=== PATIENT | female | born 1980 | race Caucasian/White ===

== ENCOUNTER 2024-12-04 04:29 | Emergency (ER) | payer MEDICAID ==
[~2024-12-04] VITALS: Ht 157.5 cm; Wt 56.8 kg
[~2024-12-04 04:29] MED LIST: NAPR-56 PO; ONDA-243 PO; SULF1TAB49 PO; TAMS-55 PO; TRAM50TA2 PO
[2024-12-04] MEDS: normal saline 1000ml 1,000 ML IV ONE (05:19)
[2024-12-04 05:27] LABS: BILIRUBIN,URINE NEGATIVE (Neg); CLARITY,URINE CLOUDY (Clear); COLOR,URINE YELLOW (Yellow); GLUCOSE, URINE NEGATIVE (Neg); KETONES,URINE NEGATIVE (Neg); LEUKOCYTE ESTERASE ,URINE MODERATE (Neg); NITRITES, URINE NEGATIVE (Neg); OCCULT BLOOD,URINE MODERATE (Neg); PROTEIN,URINE 100 mg/dl (Neg); URINE HCG NEGATIVE (NEG); UROBILINOGEN,URINE 0.2 E.U/dL (0.2-1.0)
[2024-12-04 05:29] LABS: BASOPHILS % (AUTO) 0.2 % (0-1); EOSINOPHILS % (AUTO) 0.2 % (0-6); HEMATOCRIT 37.3 % (35.0-45.0); HEMOGLOBIN 12.5 g/dl (12.0-16.0); LYMPHOCYTES # (AUTO) 1.4 X10'3 (1.1-4.8); LYMPHOCYTES % (AUTO) 12.2 % (21-51); MEAN CORPUSCULAR HGB CONC 33.4 g/dL (33.0-36.5); MEAN CORPUSCULAR VOLUME 86.8 FL (78-98); MEAN PLATELET VOLUME 8.9 FL (7.4-10.4); MONOCYTES # (AUTO) 0.9 X10'3 (0-0.9); MONOCYTES % (AUTO) 7.9 % (2-12); NEUTROPHILS # (AUTO) 9.4 X10'3 (1.8-7.7); NEUTROPHILS % (AUTO) 79.5 % (42-75); PLATELET COUNT 211 X10'3 (140-440); RED CELL DISTRIBUTION WIDTH 13.1 % (11.5-14.5); WHITE BLOOD COUNT 11.9 X10'3 (4.5-11.0)
[2024-12-04] MEDS ORDERED: iohexol 300mg/ml 100ml inj. ONE (05:30)
[2024-12-04 05:33] LABS: UA COLLECTION TYPE CLN CATCH MIDSTREAM
[2024-12-04 05:38] LABS: ALANINE AMINOTRANSFERASE 13 U/L (12-78); ALBUMIN 3.8 G/DL (3.4-5.0); ALKALINE PHOSPHATASE 83 IU/L (46-116); ANION GAP 9 (8-16); ASPARTATE AMINO TRANSFERASE 14 U/L (10-37); BILIRUBIN,TOTAL 0.5 MG/DL (0.1-1.0); BLOOD UREA NITROGEN 17 MG/DL (7-18); BUN/CREATININE RATIO 18.3 (10.0-20.0); CALCIUM 9.1 MG/DL (8.5-10.1); CHLORIDE 102 MMOL/L (99-107); CREATININE 0.93 MG/DL (0.40-0.90); GLUCOSE 136 MG/DL (70-104); LIPASE 26 U/L (16-77); POTASSIUM 3.6 MMOL/L (3.5-5.1); SODIUM 136 MMOL/L (135-145); TOTAL PROTEIN 7.5 G/DL (6.4-8.2); eCRCL 60 ML/MIN; eGFR 65 ML/MIN
[2024-12-04 05:42] LABS: SQUAMOUS EPITHELIAL CELL,UR MODERATE /LPF (FEW)
[2024-12-04 05:43] LABS: BACTERIA,URINE 2+ /HPF (Neg); MUCUS STRANDS FEW /LPF (Neg); WBC,URINE TNTC /HPF (0-4)
[2024-12-04] MEDS: CefTRIAXone/D5W-Rocephin 1gm 50 ML IV ONE (06:17)
[2024-12-04] MEDS: normal saline 1000ML IV soln IVB ONE (08:13)
[2024-12-04] MEDS: ketorolac trometh 15mg/ml vial 15 MG/ML ML IV ONE (08:14)
[2024-12-04 10:05] VITALS: BP 131/78; PULSE 60; RESP 16; TEMP 98.1; O2SAT 100
[2024-12-08] MEDS ORDERED: AMOX-117 PO (14:01)
== END 2024-12-04 10:58 | disposition home or self-care (01) ==
LOC: ER 04:30
DX: R10.31 Right lower quadrant pain (principal); Z88.5 Allergy status to narcotic agent; Z88.6 Allergy status to analgesic agent; Z79.1 Long term (current) use of non-steroidal anti-inflammatories (NSAID); Z79.899 Other long term (current) drug therapy
CPT/HCPCS: 36415; 74177; 80053; 81001; 81025; 83690; 85025; 87077; 87088; 87186; 96361; 96365; 96375; 99285; J0696; J1885; J7030; Q9967

== ENCOUNTER 2025-09-09 20:33 | Emergency (ER) | payer MEDICAID ==
[~2025-09-09] VITALS: Ht 165.1 cm; Wt 57.7 kg
[2025-09-09 20:42] VITALS: TEMP 98.3
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
[2025-09-09] MEDS: ketorolac trometh 15mg/ml vial 15 MG/ML ML IV ONE (22:16)
[2025-09-09] MEDS: morphine 4 MG/ML inj SYRINge IV ONE (22:16)
--- NOTE | 2025-09-09 22:23 | RADIOLOGY REPORT ---
CLINICAL INDICATION: pain TECHNIQUE: HIP 2-3VWSDI HIP UNILATERAL 2-3 VIEWS, left Comparison: None FINDINGS/IMPRESSION: : There is no evidence of acute fracture or dislocation. Joint spaces are maintained. Soft tissues are unremarkable.
[2025-09-09 22:31] LABS: MEAN PLATELET VOLUME 8.9 FL (7.4-10.4); RED CELL DISTRIBUTION WIDTH 13.7 % (11.5-14.5)
[2025-09-09 22:41] LABS: CREATININE 0.68 MG/DL (0.40-0.90); TOTAL CARBON DIOXIDE 25.0 MMOL/L (24-32); eCRCL 93 ML/MIN; eGFR > 90 ML/MIN
[2025-09-09 22:42] LABS: HCG SERUM QL NEGATIVE
[2025-09-09] MEDS ORDERED: iohexol 300mg/ml 100ml inj. ONE (22:47)
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
[2025-09-10] MEDS ORDERED: NAPR-56 PO (00:25)
[2025-09-10 00:40] VITALS: BP 153/108; PULSE 83; RESP 16; O2SAT 95
== END 2025-09-10 00:41 | disposition home or self-care (01) ==
LOC: ER 20:33
DX: M25.552 Pain in left hip (principal); N13.2 Hydronephrosis with renal and ureteral calculous obstruction; D64.9 Anemia, unspecified; F17.200 Nicotine dependence, unspecified, uncomplicated; Z88.5 Allergy status to narcotic agent; Z88.6 Allergy status to analgesic agent; Z79.899 Other long term (current) drug therapy; Z98.890 Other specified postprocedural states; Z72.89 Other problems related to lifestyle
CPT/HCPCS: 36415; 73502; 74177; 80048; 83735; 84703; 85025; 96374; 96375; 96376; 99285; J1885; J2270; Q9967

== ENCOUNTER 2025-09-24 15:40 | Emergency (ER) | payer MEDICAID ==
[~2025-09-24] VITALS: Ht 165.1 cm; Wt 63.0 kg
--- NOTE | 2025-09-24 16:57 | Physician Documentation ---
History of Present Illness ~ Chief Complaint: Flank Pain Stated Complaint: FLANK PAIN Time Seen by MD: 17:31 Primary Medical Doctor: NONE HPI This is a 44-year-old female who presents by EMS with continued left flank pain after being diagnosed with a 11 mm kidney stone approximately one-week prior, patient reports no fevers, chills, or other systemic symptoms. Patient does report burning with urination though reports no hematuria. Patient reports she has run out of her previously prescribed pain medications. Patient endorses that she has failed to follow up with Urology. Medication Reconciliation Allergies: Coded Allergies: oxycodone (Verified Allergy, Intermediate, itching, 06/25/24) acetaminophen (Verified Adverse Reaction, Intermediate, itching, 06/25/24) hydrocodone (Verified Adverse Reaction, Intermediate, itching, 06/25/24) Scheduled Ciprofloxacin HCl (Ciprofloxacin HCl), 1 TAB PO BID Naproxen (Naproxen), 1 TAB PO Q12H Naproxen (Naproxen), 1 TAB PO Q12H Sulfamethoxazole/Trimethoprim (Bactrim Ds Tablet), 1 TAB PO Q12H Tamsulosin Hcl* (Flomax*), 1 CAP PO qhs Scheduled PRN ONDANSETRON ODT 4mg tablet (Ondansetron Odt), 1 TAB PO Q6H PRN PRN for nausea/vomiting Tramadol HCl (Tramadol HCl), 1 TAB PO TID PRN PRN for pain Past Medical History Past Medical History: No Pertinent History, Kidney Stones Past Surgical History: Alcohol Use: Occasionally Drug Use: none Review of Systems All Other Systems at this time: Reviewed and Negative (See HPI) ROS As stated above in the HPI, otherwise all systems are reviewed and negative. Physical Exam Vital Signs: RN Vital Signs have been reviewed: Yes, Temperature: 97.6, Heart Rate: 68, Respiratory Rate: 14, BP: 121/101, Pulse Oximetry: 98, Weight: 63.000 Oxygen Flow Rate: 0 Physical Exam VITALS: Reviewed and as above. GENERAL: Alert, nontoxic appearing, no apparent distress. HEENT: RESPIRATORY: No increased work of breathing, no respiratory distress, speaking in full clear sentences CHEST: CV: BACK: GI: MUSCULOSKELETAL: SKIN: NEURO: PSYCH: General Appearance: alert, WD/WN, mild distress EENT: PERRL/EOMI Neck: normal inspection Respiratory: lungs clear Chest: no accessory muscle use Cardiology Exam: normal peripheral pulses Gastrointestinal: non-tender Rectal: deferred Back: CVA tenderness (L) Extremities: normal range of motion Neurologic: oriented x4 Psychiatric: normal mood/affect Skin: normal color Progress Results/Orders Results/Orders Orders - JAY ROSARIO PAC Ct Abdomen Pelvis (09/24/25 ) Completed Orders - JAY ROSARIO PAC Ct Abdomen Pelvis (09/24/25 ) Ketorolac Trometh 30mg/Ml Vial (Toradol (09/24/25 17:50) Ceftriaxone/W2k-Dryaheyx 1gm (Rocephin 1 (09/24/25 19:15) Vital Signs 09/24/25 09/24/25 09/24/25 09/24/25 15:46 17:34 17:37 20:32 Temp 97.6 97.6 98.6 Pulse 68 60 59 Resp 14 18 18 B/P (MAP) 121/101 138/87 (104) 136/86 Pulse Ox 98 99 99 O2 Flow Rate 0 0 Laboratory Tests Test 09/24/25 16:47 09/24/25 16:54 White Blood Count 8.2 Red Blood Count 3.89 L Hemoglobin 11.5 L Hematocrit 34.3 L Mean Corpuscular Volume 88.2 Mean Corpuscular Hemoglobin 29.6 Mean Corpuscular Hemoglobin Concent 33.6 Red Cell Distribution Width 13.9 Platelet Count 298 Mean Platelet Volume 8.9 Neutrophils (%) (Auto) 46.6 Lymphocytes (%) (Auto) 42.1 Monocytes (%) (Auto) 6.6 Eosinophils (%) (Auto) 4.0 Basophils (%) (Auto) 0.7 Neutrophils # (Auto) 3.8 Lymphocytes # (Auto) 3.5 Monocytes # (Auto) 0.5 Eosinophils # (Auto) 0.3 Basophils # (Auto) 0.1 CBC Comment Sodium Level 140 Potassium Level 4.0 Chloride Level 107 Carbon Dioxide Level 27.8 Anion Gap 5 L Blood Urea Nitrogen 22 H Creatinine 0.92 H Estimated GFR/1.73 m2 66 BUN/Creatinine Ratio 23.9 H Glucose Level 103 Calcium Level 8.7 Total Bilirubin 0.2 Aspartate Amino Transf (AST/SGOT) 10 Alanine Aminotransferase (ALT/SGPT) 9 L Alkaline Phosphatase 62 Total Protein 7.2 Albumin 3.6 Globulin 3.6 Albumin/Globulin Ratio 1.0 L Lipase 51 Chemistry Comments Urine Specimen Description Non-specified Urine Color Straw Urine Clarity Cloudy Urine pH 6.0 Urine Specific [place] <=1.005 Urine Protein Negative Urine Glucose (UA) Negative Urine Ketones Negative Urine Occult Blood Moderate H Urine Nitrite Negative Urine Bilirubin Negative Urine Urobilinogen 0.2 Urine Leukocyte Esterase Large H Urine RBC 3-10 Urine WBC Tntc H Urine Squamous Epithelial Cells Few Urine Transitional Epithelial Cells Few Urine Bacteria 2+ Urine Mucus Few Urine Culture Indicated Indicated Volume Urine Centrifuged 10 ml Urine HCG, Qualitative Negative Urine Comment Microbiology Date/Time Source Procedure Growth Status 09/24/25 18:06 Urine Nonspecified Urine Culture - Preliminary Gram Positive Cocci Resulted Medical Decision Making Additional information obtaine: old records Findings MSE performed in triage and patient returned to ED lobby by nursing staff to await available ED room. CT imaging repeated. Stone reportedly is 9 mm instead of 11mm. No change in mod hydronephrosis yet stranding now present indicative of possible infection of stone. Patient's pain managed with Toradol. IV ceftriaxone provided. Patient to follow up with Urology. Screening labs reassuring. Discussed case with Dr. Pelayo who recommends patient to call the office and scheduled 1st available. Also recommend Cipro. Patient is nontoxic appearing at discharge. Safe for discharge in the emergency department. Diff Dx GI Bleed:Consideration: Include: Diverticulosis Diff Dx Pain:Considerations: Include: PID, Urinary obstruction, Urinary tract infection, Urolithiasis Diff Dx N/V/D:Considerations: Include: Urolithiasis Diff Dx Rectal:Considerations: Include: UTI Additional Comments Infected stone, hydronephrosis, tumor mass, ANNIKA. Departure Disposition: HOME / SELF CARE / HOMELESS Impression: Primary Impression: Acute urinary tract infection Additional Impressions: Renal colic Ureterolithiasis Discharge Instructions: Kidney Stones Additional Instructions: Please begin Antibiotic as directed. Call the office of urologist Dr. Pelayo for urology 1st available appointment follow up. Referrals: NO PRIMARY CARE PROVIDER (PCP) NATALIA PELAYO MD 1 day [facility] Prescriptions Ciprofloxacin HCl (Ciprofloxacin HCl) 500 Mg Tab 1 TAB PO BID for 10 Days, #20 TAB Prov: JAY ROSARIO PAC 09/24/25 Education Educated: Patient Educated regarding: diagnosis, treatment, prognosis, need for follow up Signature Scribe Signature: . Attestation: . AFIA ROBLEDO INTEGRATION SOFTWARE ENGINEER Sep 24, 2025 16:57 JAY ROSARIO PAC Sep 24, 2025 19:15
[2025-09-24 17:09] LABS: MEAN PLATELET VOLUME 8.9 FL (7.4-10.4); RED CELL DISTRIBUTION WIDTH 13.9 % (11.5-14.5)
[2025-09-24 17:25] LABS: CREATININE 0.92 MG/DL (0.40-0.90); eCRCL 69 ML/MIN; eGFR 66 ML/MIN
[2025-09-24 17:26] LABS: TOTAL CARBON DIOXIDE 27.8 MMOL/L (24-32)
[2025-09-24 17:59] LABS: LEUKOCYTE ESTERASE ,URINE LARGE (Neg); NITRITES, URINE NEGATIVE (Neg); OCCULT BLOOD,URINE MODERATE (Neg)
[2025-09-24 18:04] LABS: UA COLLECTION TYPE NON-SPECIFIED
[2025-09-24 18:05] LABS: URINE HCG NEGATIVE (NEG)
[2025-09-24 18:06] LABS: MUCUS STRANDS FEW /LPF (Neg); SQUAMOUS EPITHELIAL CELL,UR FEW /LPF (FEW)
[2025-09-24] MEDS: ketorolac trometh 30MG/ML vial 30 MG/ML VIAL IV ONE (18:06)
--- NOTE | 2025-09-24 18:36 | RADIOLOGY REPORT ---
EXAM: CT CT ABDOMEN PELVIS INDICATION: Renal lithiasis TECHNIQUE: Volumetric multidetector CT images of the abdomen and pelvis were obtained without contrast. All CT scans at this facility use dose modulation, iterative reconstruction, and/or weight based dosing when appropriate to reduce radiation dose to as low as reasonably achievable. COMPARISON: CT CT ABDOMEN PELVIS W/ IV CONTRAST on DOS: 09/09/25 FINDINGS: [LOWER CHEST]: The partially visualized lung bases are clear without a pleural effusion. The cardiac size is normal without pericardial effusion. [LIVER]: Hepatomegaly. Without suspicious focal lesion. [GALLBLADDER AND BILIARY TREE]: No cholelithiasis. [SPLEEN]: Unremarkable. [PANCREAS]: Unremarkable. [ADRENAL GLANDS]: Unremarkable [KIDNEYS]: Large right renal pelvic stone measuring 9 mm with surrounding inflammatory stranding and subsequent predominantly right upper renal caliceal at least moderate hydronephrosis. No visualized distal ureteral stone. No suspicious focal lesion. [BLADDER]: Unremarkable for the degree distention. [REPRODUCTIVE ORGANS]: Unremarkable. [BOWEL/MESENTERY]: Stomach is normal. Mild stool burden. No CT evidence of bowel obstruction. [ASCITES]: Absent [LYMPHADENOPATHY]: No pathologically enlarged lymph nodes by CT size criteria [VASCULATURE]: No aneurysmal dilatation. [ABDOMINAL WALL]: Unremarkable. [MUSCULOSKELETAL]: No acute fracture or aggressive focal osseous lesion. Multifocal degenerative change of the visualized spine. IMPRESSION: 1. Large right renal pelvic stone measuring 9 mm with surrounding inflammatory stranding and subsequent predominantly right upper renal caliceal at least moderate hydronephrosis. 2. No visualized distal ureteral stone.
[2025-09-24] MEDS ORDERED: CefTRIAXone/D5W-Rocephin 1gm 50 ML IV ONE (19:20)
[2025-09-24] MEDS: CefTRIAXone/D5W-Rocephin 1gm 50 ML IV ONE (19:29)
[2025-09-24] MEDS ORDERED: CIPR-458 PO (20:25)
[2025-09-24 20:32] VITALS: BP 136/86; PULSE 59; RESP 18; TEMP 98.6; O2SAT 99
== END 2025-09-24 20:34 | disposition home or self-care (01) ==
LOC: ER 15:40
DX: N20.1 Calculus of ureter (principal); N39.0 Urinary tract infection, site not specified; Z87.442 Personal history of urinary calculi; Z88.5 Allergy status to narcotic agent; Z88.6 Allergy status to analgesic agent; Z79.899 Other long term (current) drug therapy; Z72.89 Other problems related to lifestyle; Z98.890 Other specified postprocedural states
CPT/HCPCS: 36415; 74176; 80053; 81001; 81025; 83690; 85025; 87077; 87088; 87186; 96365; 96375; 99285; J0696; J1885